=== PATIENT | female | born 1995 | race African-American/Black ===

== ENCOUNTER 2020-12-06 17:59 | Day surgery (SDC) | payer BC, OTHER ==
[2020-12-06 18:47] VITALS: BMI 55.7
[2020-12-06] MEDS ORDERED: hydrALAZINE 20 MG/ML VIAL SLOW IVP PRN (21:00)
== END 2020-12-06 20:00 | disposition home or self-care (01) ==
LOC: CSHLD/OP 17:59
PROVIDERS: ATTEND Obstetrics & Gynecology
DX: O99.891 Other specified diseases and conditions complicating pregnancy (principal); R10.32 Left lower quadrant pain; Z3A.32 32 weeks gestation of pregnancy
CPT/HCPCS: 99283

== ENCOUNTER 2022-12-11 04:49 | Emergency (ER) | payer OTHER ==
[2022-12-11] MEDS ORDERED: Ketorolac Tromethamine 30 MG/ML VIAL ONE (05:04)
== END 2022-12-11 05:10 | disposition home or self-care (01) ==
LOC: CSHERS 04:49
DX: S29.012A Strain of muscle and tendon of back wall of thorax, initial encounter (principal); X58.XXXA Exposure to other specified factors, initial encounter
CPT/HCPCS: 96372; 99283; J1885

== ENCOUNTER 2023-07-02 01:09 | Emergency (ER) | payer OTHER, SELFPAY ==
[2023-07-02] MEDS ORDERED: Ketorolac Tromethamine 30 MG/ML VIAL ONE (01:50)
== END 2023-07-02 01:52 | disposition home or self-care (01) ==
LOC: CSHERS 01:09
DX: S93.602A Unspecified sprain of left foot, initial encounter (principal); X58.XXXA Exposure to other specified factors, initial encounter
CPT/HCPCS: 96372; 99283; J1885

== ENCOUNTER 2024-04-17 11:53 | Emergency (ER) | payer BC, SELFPAY | END 2024-04-17 12:51 | disposition home or self-care (01) | LOC: CSHERS 11:53 | DX: L04.2 Acute lymphadenitis of upper limb (principal) | CPT/HCPCS: 99283 ==